=== PATIENT | female | born 1985 | race African-American/Black ===

== ENCOUNTER 2019-02-26 16:26 | Emergency (ER) | payer MEDICAID ==
[~2019-02-26] VITALS: Ht 160 cm; Wt 76.2 kg
[~2019-02-26 16:26] MED LIST: DULO60CA; GABA300C; MORP60TA25; OME20GT; PREDPOW63; [UNRECOGNIZED DRUG - OTHER]
[2019-02-26 16:47] VITALS: BP 146/83
== END 2019-02-26 17:31 | disposition home or self-care (01) ==
LOC: ER 16:26
DX: F41.9 Anxiety disorder, unspecified (principal); Z76.0 Encounter for issue of repeat prescription; Z88.6 Allergy status to analgesic agent; Z91.041 Radiographic dye allergy status

== ENCOUNTER 2019-03-29 10:39 | Emergency (ER) | payer MEDICAID ==
[~2019-03-29] VITALS: Ht 160 cm; Wt 75.7 kg
[2019-03-29 11:11] LABS: Urine Amorphous Crystal MOD /hpf (None Seen); Urine Bacteria FEW /hpf (None Seen); Urine Blood Negative /uL (Negative); Urine Mucus FEW (None Seen); Urine Specific Gravity 1.029 (1.001-1.035); Urine WBC 34 /hpf (0 - 5)
[2019-03-29 11:20] LABS: Alcohol, Urine < 3.0 mg/dL (0-5); Amphetamine Screen, Urine POSITIVE (NEGATIVE); Barbiturate Scree,Urine NEGATIVE (NEGATIVE); Benzodiazephine Screen, Urine NEGATIVE (NEGATIVE); Cannabinoid Screen, Urine POSITIVE (NEGATIVE); Cocaine Screen, Urine NEGATIVE (NEGATIVE); Opiate Scree,Urine NEGATIVE (NEGATIVE); Phencyclidine Screen, Urine NEGATIVE (NEGATIVE)
[2019-03-29] MEDS ORDERED: SODIUM CHLORIDE 0.9% 1,000 ML IV ONE ×2 (11:45)
[2019-03-29] MEDS ORDERED: LORazepam 2MG/ML-1ML VIAL IV ONE ×2 (11:45→14:15)
[2019-03-29 12:17] LABS: Basophils # (auto) 0.1 uL; Eosinophils # (auto) 0 uL; Hemoglobin 11.5 g/dL (12.2-16.2); Monocytes # (auto) 0.6 uL; Neutrophils # (auto) 2.7 uL; Nucleated Red Blood Cells % 0.1 %
[2019-03-29 12:20] LABS: Basophils % (auto) 1.3 % (0.0-2.0); Eosinophils % (auto) 0.9 % (0.0-7.0); Hematocrit 35.8 % (36.0-46.0); Lymphocytes # (auto) 1.7 uL; Lymphocytes % (auto) 33.2 % (10.0-50.0); Mean Corpuscular Hemoglobin 24.2 pg (28.0-32.0); Mean Corpuscular Hgb Conc. 32.1 g/dL (32.0-36.0); Mean Corpuscular Volume 75.4 fL (80.0-100.0); Monocytes % (auto) 11.7 % (0.0-12.0); Neutrophils % (auto) 52.9 % (37.0-80.0); Platelet Count (auto) 242 10^3/uL (140-450); Red Blood Cells 4.75 10^6/uL (4.0-5.20); White Blood Cell 5.1 10^3/uL (4.4-10.8)
[2019-03-29 12:23] LABS: Albumin 3.7 g/dL (3.4-5.0); Calcium 9.2 mg/dL (8.5-10.1); Potassium 4.2 mmol/L (3.5-5.1)
[2019-03-29 12:26] LABS: BUN/Creatinine Ratio 15.2; Bilirubin, Total 0.4 mg/dL (0.2-1.0); Total Protein 9.2 g/dL (6.4-8.2)
[2019-03-29 12:30] LABS: Red Cell Distribution Width 21.9 % (11.8-14.3)
[2019-03-29] MEDS ORDERED: cefTRIAXone 1GM/50ML D5W 50 ML IV ONE (13:00)
[2019-03-29 16:30] VITALS: BP 114/66
== END 2019-03-29 18:01 | disposition home or self-care (01) ==
LOC: ER 10:45
DX: F41.9 Anxiety disorder, unspecified (principal); N39.0 Urinary tract infection, site not specified; F15.90 Other stimulant use, unspecified, uncomplicated; M32.9 Systemic lupus erythematosus, unspecified; F17.210 Nicotine dependence, cigarettes, uncomplicated; Z88.5 Allergy status to narcotic agent; Z79.899 Other long term (current) drug therapy
CPT/HCPCS: 36415; 80053; 80307; 81001; 85025; 96365; 96375; 96376; 99283; J0696; J2060; J7030

== ENCOUNTER 2019-07-25 12:09 | Emergency (ER) | payer MEDICAID ==
[~2019-07-25] VITALS: Ht 162.6 cm; Wt 68.5 kg
[2019-07-25 13:03] VITALS: BP 133/77
[2019-07-25] MEDS ORDERED: clonazePAM 0.5 MG TAB PO ONE (13:30)
== END 2019-07-25 13:43 | disposition home or self-care (01) ==
LOC: ER 12:09
DX: F41.9 Anxiety disorder, unspecified (principal); F17.210 Nicotine dependence, cigarettes, uncomplicated; Z76.0 Encounter for issue of repeat prescription; Z88.5 Allergy status to narcotic agent; Z88.8 Allergy status to other drugs, medicaments and biological substances; Z79.899 Other long term (current) drug therapy

== ENCOUNTER 2019-08-17 15:35 | Emergency (ER) | payer MEDICAID ==
[~2019-08-17] VITALS: Ht 162.6 cm; Wt 71.7 kg
[2019-08-17 16:04] VITALS: BP 119/78
[2019-08-17] MEDS ORDERED: clonazePAM 0.5 MG TAB PO ONE (19:00)
== END 2019-08-17 19:36 | disposition home or self-care (01) ==
LOC: ER 15:35
DX: F41.9 Anxiety disorder, unspecified (principal); F17.210 Nicotine dependence, cigarettes, uncomplicated; F12.90 Cannabis use, unspecified, uncomplicated; F15.90 Other stimulant use, unspecified, uncomplicated; Z76.0 Encounter for issue of repeat prescription

== ENCOUNTER 2020-10-01 20:15 | Inpatient (IN) | payer MEDICAID ==
[~2020-10-01] VITALS: Ht 160 cm; Wt 84.8 kg
[2020-10-01] MEDS: HYDROmorphone HCL 2 MG/ML VL IV PRN (00:55)
[~2020-10-01 20:15] MED LIST changes: +MORP1TAB14; -MORP60TA25
[2020-10-01] MEDS ORDERED: TERBUTALINE SULFATE 1 MG/ML 1ML VIAL SC ONE (20:36)
[2020-10-01] MEDS ORDERED: TERBUTALINE SULFATE 1 MG/ML 1ML VIAL SC SCH (20:45)
[2020-10-01] MEDS ORDERED: LACTATED RINGER'S 1,000 ML IV ONE ×2 (20:45→21:15)
[2020-10-01] MEDS ORDERED: LACTATED RINGER'S 1,000 ML IV SCH (21:15)
[2020-10-01] MEDS ORDERED: ceFAZolin 1GM 2 GM in D5W 5% 100 ML IV ONE (21:15)
[2020-10-01] MEDS ORDERED: ceFAZolin 1GM/50ML 100 ML IV ONE (21:43)
[2020-10-01] MEDS ORDERED: BETAMETHASONE ACET (6MG/ML) 5ML VIAL IM ONE (21:45)
[2020-10-01] MEDS ORDERED: MAGNESIUM SULFATE 100 ML IV ONE ×3 (21:59→22:00)
[2020-10-01] MEDS ORDERED: LORazepam 2MG/ML-1ML VIAL IV ONE (22:00)
[2020-10-01 22:27] LABS: Eosinophils # (auto) 0 10 ^3/uL (0-0.8); Urine Bacteria FEW /hpf (None Seen); Urine Blood 2+ /uL (Negative); Urine Specific Gravity 1.008 (1.001-1.035); Urine WBC 8 /hpf (0 - 5)
[2020-10-01] MEDS: MAGNESIUM SULFATE 40MG/ML 1,000 ML IV SCH (22:27)
[2020-10-01 22:28] LABS: Basophils # (auto) 0 10 ^3/uL (0-0.2); Basophils % (auto) 0.3 % (0.0-2.0); Eosinophils % (auto) 0.1 % (0.0-7.0); Hematocrit 30.5 % (36.0-46.0); Hemoglobin 9.5 g/dL (12.2-16.2); Lymphocytes # (auto) 1.4 10 ^3/uL (0.4-5.4); Lymphocytes % (auto) 8.7 % (10.0-50.0); Mean Corpuscular Hemoglobin 23.1 pg (28.0-32.0); Mean Corpuscular Volume 74.7 fL (80.0-100.0); Monocytes # (auto) 0.7 10 ^3/uL (0-1.3); Monocytes % (auto) 4.6 % (0.0-12.0); Neutrophils # (auto) 13.9 10 ^3/uL (1.6-8.6); Neutrophils % (auto) 86.3 % (37.0-80.0); Nucleated Red Blood Cells % 0.3 %; Platelet Count (auto) 256 10^3/uL (140-450); Red Blood Cells 4.09 10^6/uL (4.0-5.20); Red Cell Distribution Width 17.9 % (11.8-14.3); White Blood Cell 16.1 10^3/uL (4.4-10.8)
[2020-10-01] MEDS ORDERED: MORPHINE SULF(PF) 0.5MG/ML 10ML VIAL ONE (22:37)
[2020-10-01] MEDS ORDERED: fentaNYL CITRATE 100 MCG/2 ML VL ONE (22:37)
[2020-10-01] MEDS ORDERED: MIDAZOLAM HCL 1MG/1ML-2 ML VIAL ONE (22:37)
[2020-10-01] MEDS ORDERED: oxyTOCIN 10 UNIT/ML 10ML VIAL ONE (22:38)
[2020-10-01] MEDS ORDERED: ONDANSETRON HCL 4 MG/2 ML VIAL ONE (22:38)
[2020-10-01] MEDS ORDERED: GLYCOPYRROLATE 0.2 MG/ML 1ML VIAL ONE ×2 (22:38→23:52)
[2020-10-01] MEDS ORDERED: LIDOCAINE 2% (LOCAL ANESTH.) PF 5ml SDV ONE (22:38)
[2020-10-01] MEDS ORDERED: PHENYLEPHRINE HCL 10 MG/ML VL ONE (22:38)
[2020-10-01 22:48] LABS: Amphetamine Screen, Urine NEGATIVE (NEGATIVE); Barbiturate Scree,Urine NEGATIVE (NEGATIVE); Benzodiazephine Screen, Urine NEGATIVE (NEGATIVE); Cannabinoid Screen, Urine NEGATIVE (NEGATIVE); Cocaine Screen, Urine NEGATIVE (NEGATIVE); Opiate Scree,Urine POSITIVE (NEGATIVE); Phencyclidine Screen, Urine NEGATIVE (NEGATIVE)
[2020-10-01] MEDS ORDERED: TETRACAINE 1% INJ 2 ML VIAL IJ ONE (22:48)
[2020-10-01] MEDS ORDERED: ROCURONIUM 10MG/ML 10ML VIAL IV ONE (22:50)
[2020-10-01 22:54] LABS: Albumin 2.2 g/dL (3.4-5.0); BUN/Creatinine Ratio 6.6; Calcium 8.9 mg/dL (8.5-10.1); Potassium 3.3 mmol/L (3.5-5.1); Uric Acid 4.2 mg/dL (2.6-6.0)
[2020-10-01 22:55] LABS: Alcohol, Urine < 3.0 mg/dL (0-10)
[2020-10-01 22:57] LABS: Bilirubin, Total 0.6 mg/dL (0.2-1.0); Total Protein 7.3 g/dL (6.4-8.2)
[2020-10-01 23:21] LABS: INR 0.91 (0.9-1.15); Partial Thromboplastin Time 29.3 sec (23.0-31.2)
[2020-10-01] MEDS ORDERED: HYDROmorphone HCL 2 MG/ML VL ONE (23:25)
[2020-10-01] MEDS ORDERED: NEOSTIGMINE 1 MG/ML INJ (10mg/10ML VIAL) ONE (23:52)
[2020-10-02] VITALS (26 sets, daily range): BP systolic 126–168; BP diastolic 55–97
[2020-10-02] MEDS ORDERED: fentaNYL CITRATE 100 MCG/2 ML VL ONE (00:13)
[2020-10-02] MEDS ORDERED: ONDANSETRON HCL 4 MG/2 ML VIAL IV PRN ×3 (00:30→00:45)
[2020-10-02] MEDS ORDERED: GUM (CHEWING) 1 GUM CHEW CHEW ONE (00:30)
[2020-10-02] MEDS ORDERED: LACTATED RINGER'S 1,000 ML IV SCH (00:30)
[2020-10-02] MEDS ORDERED: ACETAMINOPHEN IV 1000 MG/100ML (10MG/ML) IV PRN (00:30)
[2020-10-02] MEDS ORDERED: NALOXONE HCL 0.4 MG/ML VIAL IV PRN (00:45)
[2020-10-02] MEDS ORDERED: DexAMETHasone SOD PHOS 10MG/1ML VIAL INJ IV PRN (00:45)
[2020-10-02] MEDS ORDERED: NALBUPHINE HCL 10 MG/1ml INJECTION SUBCUT ONE (00:45)
[2020-10-02] MEDS ORDERED: diphenhdrAMINE HCL 50 MG/1 ML VL IV PRN (00:45)
[2020-10-02] MEDS: HYDROmorphone HCL 2 MG/ML VL IV PRN ×4 (01:05→18:58)
[2020-10-02] MEDS ORDERED: LACT. RINGERS/OXYTOCIN 20UNITS 1,000 ML IV SCH (01:23)
[2020-10-02] MEDS: KETOROLAC TROMETH 30 MG/ML 1ML VIAL IV PRN ×4 (01:54→23:22)
[2020-10-02] MEDS: MAGNESIUM SULFATE 40MG/ML 1,000 ML IV SCH (02:10)
[2020-10-02] MEDS ORDERED: PREN-96 PO (05:31)
[2020-10-02] MEDS ORDERED: OXY5T PO (05:31)
[2020-10-02] MEDS: ceFAZolin 1GM/50ML 50 ML IV SCH ×3 (05:36→22:28)
[2020-10-02 07:31] LABS: Basophils # (auto) 0 10 ^3/uL (0-0.2); Eosinophils # (auto) 0 10 ^3/uL (0-0.8); Lymphocytes # (auto) 0.7 10 ^3/uL (0.4-5.4); Mean Corpuscular Hemoglobin 23.4 pg (28.0-32.0); Mean Corpuscular Volume 75.4 fL (80.0-100.0); Neutrophils # (auto) 14.9 10 ^3/uL (1.6-8.6)
[2020-10-02 07:33] LABS: Hematocrit 27.9 % (36.0-46.0); Hemoglobin 8.7 g/dL (12.2-16.2); Lymphocytes % (auto) 4.2 % (10.0-50.0); Monocytes # (auto) 0.9 10 ^3/uL (0-1.3); Monocytes % (auto) 5.4 % (0.0-12.0); Neutrophils % (auto) 90.4 % (37.0-80.0); Nucleated Red Blood Cells % 0.3 %; Platelet Count (auto) 270 10^3/uL (140-450); White Blood Cell 16.5 10^3/uL (4.4-10.8)
[2020-10-02 07:50] LABS: Albumin 1.8 g/dL (3.4-5.0); BUN/Creatinine Ratio 7.9; Potassium 4.1 mmol/L (3.5-5.1)
[2020-10-02 07:52] LABS: Bilirubin, Total 0.4 mg/dL (0.2-1.0); Total Protein 6.7 g/dL (6.4-8.2)
[2020-10-02] MEDS ORDERED: MAGNESIUM SULFATE 40MG/ML 1,000 ML IV SCH (11:30)
[2020-10-02] MEDS: LACTATED RINGER'S 1,000 ML IV SCH ×2 (11:49→22:27)
[2020-10-02] MEDS ORDERED: LORazepam 2MG/ML-1ML VIAL IV PRN ×2 (14:15→22:45)
[2020-10-02] MEDS ORDERED: clonazePAM 0.5 MG TAB PO SCH (14:42)
[2020-10-02] MEDS: levETIRAcetam 500 MG TAB PO SCH ×2 (15:03→22:28)
[2020-10-03] MEDS: HYDROmorphone HCL 2 MG/ML VL IV PRN ×2 (02:52→07:58)
[2020-10-03] MEDS ORDERED: clonazePAM 0.5 MG TAB PO SCH (03:00)
[2020-10-03 03:03] VITALS: BP 127/63
[2020-10-03] MEDS: levETIRAcetam 500 MG TAB PO SCH (05:41)
[2020-10-03] MEDS: KETOROLAC TROMETH 30 MG/ML 1ML VIAL IV PRN (05:41)
[2020-10-03] MEDS ORDERED: SIMETHICONE 80 MG CHEWABLE TABLET PO SCH (06:00)
[2020-10-03 07:51] VITALS: BP 137/67
[2020-10-03] MEDS ORDERED: LORazepam 2MG/ML-1ML VIAL IV ONE (08:45)
[2020-10-03] MEDS ORDERED: levETIRAcetam 500 MG TAB PO SCH ×2 (09:15→22:00)
[2020-10-03 09:23] VITALS: BP 135/67
[2020-10-03] MEDS ORDERED: DOCUSATE SOD 100 MG CAP PO SCH (10:00)
[2020-10-04 06:06] LABS: RPR Non Reactive (Non Reactive)
[2020-10-04 06:06] LABS: RPR Non Reactive (Non Reactive)
== END 2020-10-03 10:40 | disposition left against medical advice (07) | DRG 540 ==
LOC: LDRP 20:15 → OBSVTOIN 21:13 → LDRP 22:03
PROVIDERS: ADMIT Specialist; ATTEND Specialist
PROC: 10D00Z1 Extraction of Products of Conception, Low, Open Approach (ICD-10-PCS; principal; 2020-10-02)
DX: O34.211 Maternal care for low transverse scar from previous cesarean delivery (principal); O42.013 Preterm premature rupture of membranes, onset of labor within 24 hours of rupture, third trimester; O60.14X0 Preterm labor third trimester with preterm delivery third trimester, not applicable or unspecified; O13.4 Gestational [pregnancy-induced] hypertension without significant proteinuria, complicating childbirth; O99.214 Obesity complicating childbirth; O99.284 Endocrine, nutritional and metabolic diseases complicating childbirth; O77.0 Labor and delivery complicated by meconium in amniotic fluid; O25.2 Malnutrition in childbirth; O99.344 Other mental disorders complicating childbirth; O99.324 Drug use complicating childbirth; O99.334 Smoking (tobacco) complicating childbirth; E87.1 Hypo-osmolality and hyponatremia; E44.0 Moderate protein-calorie malnutrition; E87.6 Hypokalemia; F17.200 Nicotine dependence, unspecified, uncomplicated; F40.240 Claustrophobia; F41.0 Panic disorder [episodic paroxysmal anxiety]; F43.10 Post-traumatic stress disorder, unspecified; G40.909 Epilepsy, unspecified, not intractable, without status epilepticus; K66.0 Peritoneal adhesions (postprocedural) (postinfection); M79.7 Fibromyalgia; O76 Abnormality in fetal heart rate and rhythm complicating labor and delivery; F11.90 Opioid use, unspecified, uncomplicated; Z20.828 Contact with and (suspected) exposure to other viral communicable diseases; Z53.29 Procedure and treatment not carried out because of patient's decision for other reasons; O14.90 Unspecified pre-eclampsia, unspecified trimester; G89.29 Other chronic pain; O99.354 Diseases of the nervous system complicating childbirth; Z37.0 Single live birth; Z79.899 Other long term (current) drug therapy; Z82.0 Family history of epilepsy and other diseases of the nervous system; Z86.73 Personal history of transient ischemic attack (TIA), and cerebral infarction without residual deficits; Z3A.36 36 weeks gestation of pregnancy; Z88.5 Allergy status to narcotic agent; Z88.6 Allergy status to analgesic agent; Z91.041 Radiographic dye allergy status
CPT/HCPCS: 36415; 59025; 76805; 80053; 80307; 81001; 83735; 84112; 84550; 85025; 85384; 85610; 85730; 86592; 86703; 86762; 86850; 86900; 86901; 86920; 87340; 87426; 93306; 93886; 94760; 94762; 96360; 96361; 96365; 96366; 96372; 96374; 96375; G0378; J0131; J0690; J1885; J2001; J2250; J2405; J2590; J7060

== ENCOUNTER 2020-10-09 12:10 | Emergency (ER) | payer MEDICAID ==
[~2020-10-09] VITALS: Ht 160 cm; Wt 175.5 kg
[~2020-10-09 12:10] MED LIST changes: -DULO60CA; -GABA300C; -MORP1TAB14; -OME20GT; +OXY5T PO; -PREDPOW63; +PREN-96 PO; -[UNRECOGNIZED DRUG - OTHER]
[2020-10-09 12:38] VITALS: BP 153/86
[2020-10-09] MEDS ORDERED: MORPHINE SULFATE 4 MG/ML SYR/VIAL IV ONE (12:45)
[2020-10-09] MEDS ORDERED: ONDANSETRON HCL 4 MG/2 ML VIAL IV ONE (12:45)
[2020-10-09 13:46] LABS: Basophils # (auto) 0 10 ^3/uL (0-0.2); Eosinophils # (auto) 0.1 10 ^3/uL (0-0.8); Eosinophils % (auto) 0.8 % (0.0-7.0); Hemoglobin 7.4 g/dL (12.2-16.2)
[2020-10-09 13:48] LABS: Basophils % (auto) 0.3 % (0.0-2.0); Hematocrit 23.4 % (36.0-46.0); Lymphocytes # (auto) 1.9 10 ^3/uL (0.4-5.4); Lymphocytes % (auto) 10.7 % (10.0-50.0); Mean Corpuscular Hemoglobin 23.2 pg (28.0-32.0); Mean Corpuscular Hgb Conc. 31.4 g/dL (32.0-36.0); Mean Corpuscular Volume 73.7 fL (80.0-100.0); Monocytes # (auto) 0.9 10 ^3/uL (0-1.3); Monocytes % (auto) 5.4 % (0.0-12.0); Neutrophils # (auto) 14.4 10 ^3/uL (1.6-8.6); Neutrophils % (auto) 82.8 % (37.0-80.0); Nucleated Red Blood Cells % 0.2 %; Platelet Count (auto) 535 10^3/uL (140-450); Red Blood Cells 3.18 10^6/uL (4.0-5.20); Red Cell Distribution Width 18.2 % (11.8-14.3); White Blood Cell 17.4 10^3/uL (4.4-10.8)
[2020-10-09 14:04] LABS: Albumin 1.9 g/dL (3.4-5.0); BUN/Creatinine Ratio 14.8; Calcium 8.3 mg/dL (8.5-10.1); Potassium 3.8 mmol/L (3.5-5.1)
[2020-10-09 14:07] LABS: Bilirubin, Total 0.3 mg/dL (0.2-1.0)
[2020-10-09] MEDS ORDERED: cefTRIAXone 1GM/50ML D5W 50 ML IV ONE (15:45)
[2020-10-09] MEDS ORDERED: HYDROcodone-ACET 5/325MG TAB PO ONE (18:45)
[2020-10-09] MEDS ORDERED: cefTRIAXone SOD 1,000 MG VL IM ONE (18:45)
== END 2020-10-09 16:23 | disposition home or self-care (01) ==
LOC: ER 12:10
DX: K52.9 Noninfective gastroenteritis and colitis, unspecified (principal); F41.9 Anxiety disorder, unspecified; F17.210 Nicotine dependence, cigarettes, uncomplicated; Z79.899 Other long term (current) drug therapy
CPT/HCPCS: 36415; 74176; 80053; 85025

== ENCOUNTER 2020-10-12 19:34 | Emergency (ER) | payer MEDICAID, MEDICARE ==
[~2020-10-12] VITALS: Ht 160 cm; Wt 84.8 kg
[2020-10-12 19:50] VITALS: BP 151/89
[2020-10-12] MEDS ORDERED: ONDANSETRON ODT 4 MG TAB PO ONE ×2 (20:00→20:07)
[2020-10-12] MEDS ORDERED: HYDROcodone-ACET 10/325MG TAB PO ONE (20:00)
[2020-10-12] MEDS ORDERED: HYDROcodone-ACET 10/325MG TAB ONE (20:07)
[2020-10-12] MEDS ORDERED: LIDOCAINE 1% HCL (LOCAL ANESTH.) INJ 20ML MDV ONE (20:08)
[2020-10-12] MEDS ORDERED: cefTRIAXone SOD 1,000 MG VL ONE (20:08)
[2020-10-12] MEDS ORDERED: cefTRIAXone W LIDOCAINE 1 GM IM IM ONE (20:30)
[2020-10-12 23:13] LABS: Lymphocytes # (auto) 1.5 10 ^3/uL (0.4-5.4); Monocytes # (auto) 0.7 10 ^3/uL (0-1.3); Nucleated Red Blood Cells % 0.8 %
[2020-10-12 23:17] LABS: Basophils # (auto) 0.1 10 ^3/uL (0-0.2); Basophils % (auto) 0.5 % (0.0-2.0); Eosinophils # (auto) 0.1 10 ^3/uL (0-0.8); Eosinophils % (auto) 1.3 % (0.0-7.0); Hematocrit 25.6 % (36.0-46.0); Hemoglobin 7.8 g/dL (12.2-16.2); Lymphocytes % (auto) 13.8 % (10.0-50.0); Mean Corpuscular Hemoglobin 22.5 pg (28.0-32.0); Mean Corpuscular Hgb Conc. 30.6 g/dL (32.0-36.0); Mean Corpuscular Volume 73.6 fL (80.0-100.0); Monocytes % (auto) 6.6 % (0.0-12.0); Neutrophils # (auto) 8.3 10 ^3/uL (1.6-8.6); Neutrophils % (auto) 77.8 % (37.0-80.0); Red Blood Cells 3.48 10^6/uL (4.0-5.20); White Blood Cell 10.7 10^3/uL (4.4-10.8)
[2020-10-12 23:27] LABS: Platelet Count (auto) 770 10^3/uL (140-450)
[2020-10-12 23:28] LABS: INR 1.06 (0.9-1.15); Partial Thromboplastin Time 29.1 sec (23.0-31.2)
[2020-10-12 23:32] LABS: Albumin 2.1 g/dL (3.4-5.0); BUN/Creatinine Ratio 10.9; Calcium 8.5 mg/dL (8.5-10.1); Potassium 3.7 mmol/L (3.5-5.1)
[2020-10-12 23:35] LABS: Bilirubin, Total 0.2 mg/dL (0.2-1.0); Total Protein 7.2 g/dL (6.4-8.2)
[2020-10-13] MEDS ORDERED: MORPHINE SULFATE 4 MG/ML SYR/VIAL ONE (02:56)
[2020-10-13] MEDS ORDERED: MORPHINE SULFATE 4 MG/ML SYR/VIAL IM ONE (03:15)
== END 2020-10-13 01:02 | disposition home or self-care (01) ==
LOC: ER 19:34
DX: L03.311 Cellulitis of abdominal wall (principal); F17.210 Nicotine dependence, cigarettes, uncomplicated; Z88.6 Allergy status to analgesic agent
CPT/HCPCS: 36415; 74176; 80053; 85025; 85610; 85730; 96372; 99284; J0696; J2001; Q0162

== ENCOUNTER 2024-09-04 13:30 | Emergency (ER) | payer MEDICAID ==
[~2024-09-04] VITALS: Ht 160 cm; Wt 92.7 kg
[2024-09-04 14:27] VITALS: BP 153/91; PULSE 108; RESP 17; TEMP 98.5; O2SAT 96
--- NOTE | 2024-09-04 14:40 | ED.PDOC ---
History of Present Illness HPI Comments A 39 YEAR OLD FEMALE PRESENTS TO THE ED WITH COMPLAINT OF MEDICATION REFILL FOR ANXIETY MEDICATION. PATIENT STATES SHE HAS A HISTORY OF ANXIETY AND HAS BEEN OUT OF HER MEDICATION FOR THE PAST FEW WEEKS. PATIENT REPORTS SHE TAKES KLONOPIN 1MG TO MANAGE HER ANXIETY. PATIENT NOTES SHE HAS AN APPOINTMENT WITH HER PRIMARY CARE PHYSICIAN NEXT WEEK. PATIENT DENIES SI, HI, FEVER, CHILLS, SHORTNESS OF BREATH, CHEST PAIN, ABDOMINAL PAIN, NAUSEA, VOMITING, HEADACHE, OR OTHER COMPLAINTS. NO OTHER SYMPTOMS OR MODIFYING FACTORS AT THIS TIME. PATIENT IS ALERT, ORIENTED X 4, AND HAS STEADY GAIT. Chief Complaint: Anxiety Time Seen by MD: 13:48 Primary Care Provider: none Reviewed Notes: Nurses Notes, Medications, Allergies Allergies: Coded Allergies: Iodine (Verified Allergy, Severe, throat swelling, itching, 10/03/20) Codeine (Verified Allergy, Unknown, throat swelling,itching, 10/03/20) Home Meds Active Scripts Clonazepam (Klonopin) 1 Mg Tab, 1 TAB PO TID, #15 TAB Prov:SHRUTHI VELEZ 09/04/24 Reported Medications Oxycodone Hcl (OXYCODONE HCL) 5 Mg Tb, 30 MG PO BID PRN for PAIN SCALE 7 THRU 10, TAB 10/02/20 Vit W/ Ferrous Fumara ( One Daily) Daily Tab, 1 TAB PO DAILY, #90 TAB 3 Refills 10/02/20 Information Source: Patient Mode of Arrival: Ambulatory Severity: None Timing: Days Duration: Since onset, Days Prehospital treatment: None Medication Refill: Ran out of Medication, For: Other (MEDICATION REFILL FOR ANXIETY MEDICATION) Past Medical History PAST MEDICAL HISTORY: Anxiety, Arthritis, Liver, Seizures 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 AND BUFFING MACHINE OPERATOR History Family History Family History: Reviewed,noncontributory to illness, No family hx of Cancer, No family hx of DM, No family hx of Heart santino, No family hx of HTN, No family hx ofKidney santino, No family hx of Liver snatino, No family hx of Lung santino, No family hx of Stroke Social History Smoker: Cigarettes, Less Than 1 Pack/Day Alcohol: Denies ETOH Use Drugs: Marijuana Lives In: Home Constitutional: denies: chills, diaphoresis, fatigue, fever, malaise, sweats, weakness, others EENTM: denies: blurred vision, double vision, ear bleeding, ear discharge, ear drainage, ear pain, ear ringing, eye pain, eye redness, hearing loss, mouth pain, mouth swelling, nasal discharge, nose bleeding, nose congestion, nose pain, photophobia, tearing, throat pain, throat swelling, voice changes, others Respiratory: denies: cough, hemoptysis, orthopnea, SOB at rest, shortness of breath, SOB with excertion, stridor, wheezing, others Cardiovascular: denies: chest pain, dizzy spells, diaphoresis, Dyspnea on e xertion, edema, irregular heart beat, left arm pain, lightheadedness, palpitations, PND, syncope, others Gastrointestinal: denies: abdomen distended, abdominal pain, blood streaked bowels, constipated, diarrhea, dysphagia, difficulty swallowing, hematemesis, melena, nausea, poor appetite, poor fluid intake, rectal bleeding, rectal pain, vomiting, others Genitourinary: denies: abnormal vagina bleeding, burning, dyspareunia, dysuria, flank pain, frequency, hematuria, incontinence, pain, , vagina discharge, urgency, others Neurological: denies: dizziness, fainting, headache, left sided numbness, left sided weakness, numbness, paresthesia, pre-existing deficit, right sided numbness, right sided weakness, seizure, speech problems, tingling, tremors, weakness, others Musculoskeletal: denies: back pain, gout, joint pain, joint swelling, muscle pain, muscle stiffness, neck pain, others Integumetry: denies: bruises, change in color, change in hair/nails, dryness, laceration, lesions, lumps, rash, wounds, others Allergic/Immunocompromised: denies: Difficulty Healing, Frequent Infections, Hives, Itching, others Hematologic/Lymphatic: denies: anemia, blood clots, easy bleeding, easy bruising, swollen glands, others Endocrine: denies: excessive hunger, excessive sweating, excessive thirst, excessive urination, flushing, intolerance to cold, intolerance to heat, unexplained weight gain, unexplained weight loss, others Psychiatric: denies: anxiety, bipolar disorder, depression, hopeless, panic disorder, schizophrenia, sleepless, suicidal, others All Other Systems: Reviewed and Negative Physical Exam General Appearance: No Apparent Distress, Normal HEENT: Normal ENT Inspection, PERRL/EOMI, Pharynx Normal, TMs Normal Neck: Full Range of Motion, Non-Tender, Normal, Normal Inspection Respiratory: Chest Non-Tender, Lungs Clear, No Accessory Muscle Use, No Respiratory Distress, Normal Breath Sounds Cardiovascular: No Edema, No JVD, No Murmur, No Gallop, Normal Peripheral Pulses, Regular Rate/Rhythm Breast Exam: Deferred Gastrointestinal: No Organomegaly, Non Tender, No Pulsatile Mass, Normal Bowel Sounds, Soft Genitalia: Deferred Pelvic: Deferred Rectal: Deferred Extremities: No calf tenderness, Normal capillary refill, Normal inspection, Normal range of motion, Non-tender, No pedal edema Musculoskeletal : Apperance: Normal Neurologic: Alert, rewinder II-XII nml as Tested, No Motor Deficits, Normal Affect, Normal Mood, No Sensory Deficits Cerebellar Function: Normal Reflexes: Normal Skin: Dry, Normal Color, Warm Peripheral Pulses: 2+ carotid (R), 2+ carotid (L) Lymphatic: No Adenopathy Was a procedure done? Was a procedure done?: No Differential Dx Considerations may include: MEDICATION REFILL, HISTORY OF ANXIETY X-Ray, Labs, Meds, VS Vital Signs Date Time Temp Pulse Resp B/P (MAP) Pulse Ox O2 Delivery O2 Flow Rate FiO2 09/04/24 14:27 108 17 96 Room Air 09/04/24 14:27 98.5 108 17 153/91 (111) 96 98.5 09/04/24 13:44 98.5 108 17 153/91 (111) 96 Time of 1ST Reevaluation: 14:42 Reevaluation 1ST: Improved Patient Education/Counseling: Diagnosis, Treatment, Need For Follow Up Family Education/Counseling: Diagnosis, Treatment, Need For Follow Up Medical Screening: No EMC Exist At This Time Departure 1 Departure Time of Disposition: 15:00 Impression: Primary Impression: Encounter for medication refill Additional Impression: History of anxiety Disposition: 01 HOME / SELF CARE / HOMELESS Condition: Stable Additional Instructions: FOLLOW-UP WITH PCP IN 1 TO 2 DAYS. TAKE MEDICATIONS PRESCRIBED. RETURN TO ED FOR ANY NEW OR WORSENING SYMPTOMS. e-Prescriptions Clonazepam (Klonopin) 1 Mg Tab 1 TAB PO TID, #15 TAB Prov: SHRUTHI VELEZ 09/04/24 Discharged With: Self Critical Care Note Critical Care Time?: No Stability Stability form required: No I personally scribed for SHRUTHI VELEZ ([email or web address]) on 09/04/24 at 14:40. Electronically submitted by Estevan Rivers ([email or web address]). SHRUTHI VELEZ Sep 04, 2024 14:40
[2024-09-04] MEDS ORDERED: CLON-1004 PO (14:41)
== END 2024-09-04 14:52 | disposition home or self-care (01) ==
LOC: ER 13:30
DX: F41.9 Anxiety disorder, unspecified (principal); M19.90 Unspecified osteoarthritis, unspecified site; F17.210 Nicotine dependence, cigarettes, uncomplicated; F15.90 Other stimulant use, unspecified, uncomplicated; Z76.0 Encounter for issue of repeat prescription; Z98.890 Other specified postprocedural states; Z91.041 Radiographic dye allergy status; Z88.5 Allergy status to narcotic agent; Z88.8 Allergy status to other drugs, medicaments and biological substances; Z79.899 Other long term (current) drug therapy